=== PATIENT | female | born 1970 | race Caucasian/White ===

== ENCOUNTER → 2017-02-01 | Outpatient (CLI) | payer MEDICAID | LOC: CIMAGING 16:44 | PROVIDERS: ATTEND Family Medicine | DX: N83.201 Unspecified ovarian cyst, right side (principal); N83.202 Unspecified ovarian cyst, left side | CPT/HCPCS: 76856-PO ==

== ENCOUNTER → 2017-03-12 | Outpatient (CLI) | payer MEDICAID | LOC: CIMAGING 14:55 | PROVIDERS: ATTEND Family Medicine | DX: N83.201 Unspecified ovarian cyst, right side (principal); N83.202 Unspecified ovarian cyst, left side | CPT/HCPCS: 76856-PO ==

== ENCOUNTER → 2017-05-20 | Outpatient (CLI) | payer MEDICAID ==
[~2017-05-20] MED LIST: GADOBUTROL 10 ML VIAL IVP ONE
== END ==
LOC: FIMAGING 07:55
PROVIDERS: ATTEND Obstetrics & Gynecology
DX: N83.201 Unspecified ovarian cyst, right side (principal); N88.8 Other specified noninflammatory disorders of cervix uteri
CPT/HCPCS: A9585

== ENCOUNTER → 2018-07-10 | Outpatient (CLI) | payer MEDICAID | LOC: FIMAGING 09:32 | PROVIDERS: ATTEND Internal Medicine Hematology & Oncology | DX: R51 Headache (principal); R63.4 Abnormal weight loss; D72.820 Lymphocytosis (symptomatic) | CPT/HCPCS: A9585 ==

== ENCOUNTER → 2018-07-18 | Outpatient (CLI) | payer MEDICAID | LOC: FIMAGING 08:13 | PROVIDERS: ATTEND Family Medicine | DX: Z12.31 Encounter for screening mammogram for malignant neoplasm of breast (principal) ==

== ENCOUNTER → 2018-08-06 | Outpatient (CLI) | payer MEDICAID | LOC: FIMAGING 07:39 | PROVIDERS: ATTEND Internal Medicine Hematology & Oncology | DX: N64.52 Nipple discharge (principal); R92.2 Inconclusive mammogram | CPT/HCPCS: A9585; C8908 ==

== ENCOUNTER → 2018-08-19 | Outpatient (CLI) | payer MEDICAID | LOC: FIMAGING 13:01 | PROVIDERS: ATTEND Internal Medicine Hematology & Oncology | DX: N64.89 Other specified disorders of breast (principal) ==